=== PATIENT | female | born 1990 | race Caucasian/White ===

== ENCOUNTER 2019-06-19 17:49 | Emergency (ER) | payer MEDICAID ==
[2019-06-19] MEDS ORDERED: MAG HYDROX/AL HYDROX/SIMETH 30 ML UDC PO STA (18:34)
[2019-06-19] MEDS ORDERED: SUCRALFATE 1 GM/10 ML UDC PO STA (18:34)
[2019-06-19] MEDS ORDERED: FAMOTIDINE 20 MG TABLET PO STA (18:35)
--- NOTE | 2019-06-19 18:39 | ED Physician Documentation ---
History of Present Illness - Stated complaint Stated Complaint: RECTAL BLEED, ABD PAIN, DIZZY, CONFUSION - Chief complaint Chief Complaint: General - History obtained from History obtained from: Patient, Family - History of Present Illness Timing: How many weeks ago (several) Pain level max: 3 Pain level now: 3 - Additonal information Additional information: 29-year-old female with a history of schizoaffective disorder, recently started on Abilify. She states that this gave her sleep paralysis and made her sleep for 3 days. Her doctor stopped the medication. She states she still is not felt right since stopping that medication. She feels like the room is spinning when she turns her head quickly. Also has left upper quadrant abdominal pain, worse with eating. No diarrhea or constipation. States she had a small amount of bright red blood on the toilet paper when she wiped a few weeks ago. She is scheduled to see GI for colonoscopy within the next month. Has not had any bleeding since that time. No fevers. No vomiting. She is not , breast-feeding or trying to become . Review of Systems Ten Systems: 10 systems reviewed and negative Constitutional: denies: Fever, Chills Ears: denies: Ear pain Nose: denies: Rhinorrhea / runny nose, Congestion Cardiac: denies: Chest pain / pressure Respiratory: denies: Cough GI: denies: Vomiting, Diarrhea : denies: Dysuria, Frequency, Hesitancy Skin: denies: Rash Musculoskeletal: denies: Neck pain, Back pain Neurologic: denies: Headache PD PAST MEDICAL HISTORY - Past Medical History Past Medical History: Yes Psych: Schizophrenia - Past Surgical History Past Surgical History: Yes HEENT: Tonsil/Adenoidectomy - Present Medications Home Medications: Ambulatory Orders Medication Instructions Recorded Confirmed Ibuprofen [Motrin] 400 mg PO Q6H PRN #20 tablet 08/12/14 hydrOXYzine pamoate [Hydroxyzine 50 mg PO ONCE PRN 08/12/14 08/12/14 Pamoate] risperiDONE [Risperdal] 5 mg PO DAILY 08/12/14 08/12/14 - Allergies Allergies/Adverse Reactions: Allergies Allergy/AdvReac Type Severity Reaction Status Date / Time No Known Drug Allergies Allergy Verified 06/19/19 18:03 - Social History Does the pt smoke?: No Smoking Status: Never smoker Does the pt drink ETOH?: No Does the pt have substance abuse?: No - Immunizations Immunizations are current?: Yes PD ED PE NORMAL - Vitals Vital signs reviewed: Yes - General General: Alert and oriented X 3, No acute distress, Well developed/nourished, Other (Obese female) - HEENT HEENT: Atraumatic, PERRL, Ears normal, Moist mucous membranes, Pharynx benign - Neck Neck: Supple, no meningeal sign - Cardiac Cardiac: RRR, Strong equal pulses - Respiratory Respiratory: No respiratory distress, Clear bilaterally - Abdomen Abdomen: Soft, Non tender, Non distended - Derm Derm: Warm and dry - Extremities Extremities: No edema - Neuro Neuro: Alert and oriented X 3 - Psych Psych: Normal mood, Normal affect Results - Vitals Vitals: Vital Signs - 24 hr 06/19/19 06/19/19 17:57 19:34 Temperature 36.8 C 36.7 C Heart Rate 91 68 Respiratory 16 18 Rate Blood Pressure 121/89 H 114/67 O2 Saturation 97 97 Oxygen O2 Source Room air - Labs Labs: Laboratory Tests 06/19/19 06/19/19 06/19/19 18:21 18:45 18:45 WBC 9.4 RBC 4.53 Hgb 11.3 L Hct 37.7 MCV 83.2 MCH 24.9 L MCHC 30.0 L RDW 13.2 Plt Count 468 H MPV 9.6 Neut # (Auto) 6.0 Lymph # (Auto) 2.7 [place] # (Auto) 0.4 Eos # (Auto) 0.1 Baso # (Auto) 0.1 Absolute Nucleated RBC 0.00 Nucleated RBC % 0.0 Sodium 137 Potassium 4.3 Chloride 102 Carbon Dioxide 28 Anion Gap 7.0 BUN 11 Creatinine 0.7 Estimated GFR (MDRD) 98 Glucose 96 Calcium 8.9 Total Bilirubin 0.3 AST 18 ALT 20 Alkaline Phosphatase 48 Total Protein 7.3 Albumin 3.9 Globulin 3.4 Albumin/Globulin Ratio 1.1 Lipase 32 Urine Color YELLOW Urine Clarity CLEAR Urine pH 7.5 Ur Specific [place] 1.015 Urine Protein NEGATIVE Urine Glucose (UA) NEGATIVE Urine Ketones NEGATIVE Urine Occult Blood NEGATIVE Urine Nitrite NEGATIVE Urine Bilirubin NEGATIVE Urine Urobilinogen 0.2 (NORMAL) Ur Leukocyte Esterase NEGATIVE Ur Microscopic Review NOT INDICATED Urine Culture Comments NOT INDICATED Urine HCG, Qual NEGATIVE PD MEDICAL DECISION MAKING - ED course Complexity details: reviewed results, re-evaluated patient, considered differential, d/w patient, d/w family ED course: Patient is well-appearing, nontoxic. Afebrile. No significant lab abnorma lities. Abdomen soft, nontender nondistended on serial exam. She thinks that the GI cocktail may have helped. She also states that the spinning has lessened with meclizine. No signs of stroke. No signs of cerebellar stroke. No evidence of peritonitis. Patient counseled regarding signs and symptoms for which I believe and urgent re-evaluation would be necessary. Patient with good understanding of and agreement to plan and is comfortable going home at this time This document was made in part using voice recognition software. While efforts are made to proofread this document, sound alike and grammatical errors may occur. Departure - Departure Disposition: 01 Home, Self Care Clinical Impression: Vertigo Abdominal pain Qualifiers: Abdominal location: unspecified location Qualified Code(s): R10.9 - Unspecified abdominal pain Condition: Good Instructions: ED Abdominal Pain Unkn Cause, ED Dizziness UKO Follow-Up: Jorge Gaitan MD [Primary Care Provider] - Within 1 week Comments: Return if you worsen. Follow-up with your doctor for further care. Discharge Date/Time: 06/19/19 19:59
[2019-06-19] MEDS: MECLIZINE 12.5 MG TABLET PO STA ×2 (18:45→18:46)
[2019-06-19 18:50] LABS: BASOPHILS # (AUTO) 0.1 10^3/uL (0.0-0.1); BASOPHILS % (AUTO) 0.6 %; EOSINOPHILS # (AUTO) 0.1 10^3/uL (0.0-0.7); EOSINOPHILS % (AUTO) 1.2 %; HGB - HEMOGLOBIN 11.3 g/dL (12.0-16.0); LYMPHOCYTES # (AUTO) 2.7 10^3/uL (1.5-3.5); LYMPHOCYTES % (AUTO) 29.1 %; MEAN CORPUSCULAR HEMOGLOBIN 24.9 pg (27.0-31.0); MEAN CORPUSCULAR VOLUME 83.2 fL (81.0-99.0); MEAN PLATELET VOLUME 9.6 fL (7.9-10.8); MONOCYTES # (AUTO) 0.4 10^3/uL (0.0-1.0); MONOCYTES % (AUTO) 4.5 %; NEUTROPHILS % (AUTO) 64.2 %; PLT - PLATELET COUNT 468 10^3/uL (130-450); RED BLOOD COUNT 4.53 10^6/uL (4.20-5.40); RED CELL DISTRIBUTION WIDTH 13.2 % (12.0-15.0); WHITE BLOOD COUNT 9.4 x10^3/uL (4.8-10.8)
[2019-06-19 18:58] LABS: BILIRUBIN,URINE NEGATIVE (NEGATIVE); GLUCOSE, URINE (UA) NEGATIVE (NEGATIVE); KETONES,URINE (UA) NEGATIVE (NEGATIVE); LEUKOCYTE ESTERASE, URINE NEGATIVE (NEGATIVE); NITRITE,URINE NEGATIVE (NEGATIVE); OCCULT BLOOD,URINE NEGATIVE (NEGATIVE); PH,URINE 7.5 PH (5.0-7.5); PROTEIN,URINE NEGATIVE (NEGATIVE); UROBILINOGEN,URINE 0.2 (NORMAL) E.U./dL (NORMAL)
[2019-06-19 19:00] LABS: CLARITY,URINE CLEAR (CLEAR); HCG UR QUAL NEGATIVE
[2019-06-19 19:01] LABS: ALBUMIN 3.9 g/dL (3.2-5.5); ALBUMIN/GLOBULIN RATIO 1.1 (1.0-2.2); BILIRUBIN,TOTAL 0.3 mg/dL (0.2-1.0); CALCIUM 8.9 mg/dL (8.5-10.3); CREATININE 0.7 mg/dL (0.4-1.0); TOTAL PROTEIN 7.3 g/dL (6.7-8.2)
[2019-06-19 19:35] VITALS: BP 114/67
== END 2019-06-19 19:59 | disposition home or self-care (01) ==
LOC: ED 17:49
DX: R42 Dizziness and giddiness (principal); R10.12 Left upper quadrant pain; F25.9 Schizoaffective disorder, unspecified
CPT/HCPCS: 36415; 80053; 81003; 81025; 83690; 85025; 99283; 99284; A9270; 81001; 87086

== ENCOUNTER 2019-07-09 16:56 | Emergency (ER) | payer MEDICAID ==
[2019-07-09 17:05] VITALS: BP 144/92
--- NOTE | 2019-07-09 17:30 | ED Physician Documentation ---
History of Present Illness - Stated complaint Stated Complaint: FEVER / BILAT ARM PAIN - NEW MEDICATON - Chief complaint Chief Complaint: General - History obtained from History obtained from: Patient, Family - History of Present Illness Timing: Today Pain level max: 1 Pain level now: 1 - Additonal information Additional information: 29-year-old female presents to the emergency department stating that she started Geodon a few days ago. She states that her psychiatrist told her that if she developed a fever and her arms felt stiff that she need to be evaluated in the emergency department right away. Today she states she had a temperature of 100.5 degrees orally at home. She states that her arms feel sore. No vomiting. No coughing. Mild rhinorrhea and congestion. No abdominal pain. No diarrhea. No constipation. No urinary symptoms. Review of Systems Constitutional: reports: Fever (100.5) Nose: reports: Rhinorrhea / runny nose GI: denies: Vomiting, Diarrhea Skin: denies: Rash Musculoskeletal: denies: Neck pain, Back pain PD PAST MEDICAL HISTORY - Past Medical History Past Medical History: Yes Psych: Schizophrenia - Past Surgical History Past Surgical History: Yes HEENT: Tonsil/Adenoidectomy - Present Medications Home Medications: Ambulatory Orders Medication Instructions Recorded Confirmed Ibuprofen [Motrin] 400 mg PO Q6H PRN #20 tablet 08/12/14 hydrOXYzine pamoate [Hydroxyzine 50 mg PO ONCE PRN 08/12/14 08/12/14 Pamoate] risperiDONE [Risperdal] 5 mg PO DAILY 08/12/14 08/12/14 - Allergies Allergies/Adverse Reactions: Allergies Allergy/AdvReac Type Severity Reaction Status Date / Time No Known Drug Allergies Allergy Verified 07/09/19 17:05 - Social History Does the pt smoke?: No Smoking Status: Never smoker Does the pt drink ETOH?: No Does the pt have substance abuse?: No - Immunizations Immunizations are current?: Yes PD ED PE NORMAL - Vitals Vital signs reviewed: Yes - General General: Alert and oriented X 3, No acute distress, Well developed/nourished - HEENT HEENT: PERRL, Ears normal, Moist mucous membranes, Pharynx benign, Other (Clear rhinorrhea) - Neck Neck: Supple, no meningeal sign, No adenopathy - Cardiac Cardiac: RRR, Strong equal pulses - Respiratory Respiratory: No respiratory distress, Clear bilaterally - Abdomen Abdomen: Soft, Non tender, Non distended - Back Back: No CVA TTP, No spinal TTP - Derm Derm: Warm and dry - Extremities Extremities: No edema, Other (Normal range of motion. No rigidity.) - Neuro Neuro: Alert and oriented X 3, adjuster arbitrator 2-12 intact, No motor deficit, No sensory deficit, Normal speech Eye Opening: Spontaneous Motor: Obeys Commands Verbal: Oriented GCS Score: 15 - Psych Psych: Normal mood, Normal affect Results - Vitals Vitals: Vital Signs - 24 hr 07/09/19 17:02 Temperature 37.3 C Heart Rate 95 Respiratory 18 Rate Blood Pressure 144/92 H O2 Saturation 97 Oxygen O2 Source Room air - Labs Labs: Laboratory Tests 07/09/19 07/09/19 07/09/19 17:38 17:38 18:12 WBC 10.1 RBC 4.58 Hgb 11.4 L Hct 37.7 MCV 82.3 MCH 24.9 L MCHC 30.2 L RDW 14.1 Plt Count 504 H MPV 9.5 Neut # (Auto) 6.7 H Lymph # (Auto) 2.7 [place] # (Auto) 0.6 Eos # (Auto) 0.1 Baso # (Auto) 0.1 Absolute Nucleated RBC 0.00 Nucleated RBC % 0.0 Sodium 137 Potassium 3.9 Chloride 102 Carbon Dioxide 25 Anion Gap 10.0 BUN 6 Creatinine 0.7 Estimated GFR (MDRD) 98 Glucose 94 Calcium 8.6 Total Bilirubin 0.5 AST 13 ALT 15 Alkaline Phosphatase 51 Total Creatine Kinase 59 Total Protein 7.4 Albumin 3.9 Globulin 3.5 Albumin/Globulin Ratio 1.1 Lipase 26 Urine Color YELLOW Urine Clarity HAZY Urine pH 5.5 Ur Specific [place] >=1.030 H Urine Protein NEGATIVE Urine Glucose (UA) NEGATIVE Urine Ketones NEGATIVE Urine Occult Blood NEGATIVE Urine Nitrite NEGATIVE Urine Bilirubin NEGATIVE Urine Urobilinogen 0.2 (NORMAL) Ur Leukocyte Esterase SMALL H Urine RBC 0-5 Urine WBC 11-25 H Ur Squamous Epith Cells MANY Squamous H Urine Bacteria Rare Ur Microscopic Review INDICATED Urine Culture Comments NOT INDICATED Urine HCG, Qual NEGATIVE Influenza A (Rapid) Influenza B (Rapid) 07/09/19 18:12 WBC RBC Hgb Hct MCV MCH MCHC RDW Plt Count MPV Neut # (Auto) Lymph # (Auto) [place] # (Auto) Eos # (Auto) Baso # (Auto) Absolute Nucleated RBC Nucleated RBC % Sodium Potassium Chloride Carbon Dioxide Anion Gap BUN Creatinine Estimated GFR (MDRD) Glucose Calcium Total Bilirubin AST ALT Alkaline Phosphatase Total Creatine Kinase Total Protein Albumin Globulin Albumin/Globulin Ratio Lipase Urine Color Urine Clarity Urine pH Ur Specific [place] Urine Protein Urine Glucose (UA) Urine Ketones Urine Occult Blood Urine Nitrite Urine Bilirubin Urine Urobilinogen Ur Leukocyte Esterase Urine RBC Urine WBC Ur Squamous Epith Cells Urine Bacteria Ur Microscopic Review Urine Culture Comments Urine HCG, Qual Influenza A (Rapid) Negative Influenza B (Rapid) Negative PD MEDICAL DECISION MAKING - ED course Complexity details: reviewed results, re-evaluated patient, considered differential, d/w patient ED course: 29-year-old female with what appears to be a viral syndrome. She is well- appearing, nontoxic. Afebrile here. No evidence of neuroleptic malignant syndrome. We will have her follow-up with her psychiatrist in the morning to discuss if he wants her to continue the Geodon at home. Patient counseled regarding signs and symptoms for which I believe and urgent re-evaluation would be necessary. Patient with good understanding of and agreement to plan and is comfortable going home at this time This document was made in part using voice recognition software. While efforts are made to proofread this document, sound alike and grammatical errors may occur. Departure - Departure Disposition: 01 Home, Self Care Clinical Impression: Viral syndrome Condition: Good Instructions: ED Viral Syndrome Follow-Up: Jorge Gaitan MD [Primary Care Provider] - Within 1 week Comments: Contact your doctor tomorrow to see if he wants you to continue your Geodon. You do not appear to have neuroleptic malignant syndrome tonight. Your laboratory testing is normal. Return if you worsen. Discharge Date/Time: 07/09/19 19:50
[2019-07-09 17:43] LABS: BASOPHILS # (AUTO) 0.1 10^3/uL (0.0-0.1); BASOPHILS % (AUTO) 0.6 %; EOSINOPHILS # (AUTO) 0.1 10^3/uL (0.0-0.7); EOSINOPHILS % (AUTO) 1.1 %; HGB - HEMOGLOBIN 11.4 g/dL (12.0-16.0); LYMPHOCYTES # (AUTO) 2.7 10^3/uL (1.5-3.5); LYMPHOCYTES % (AUTO) 26.3 %; MEAN CORPUSCULAR HEMOGLOBIN 24.9 pg (27.0-31.0); MEAN CORPUSCULAR HGB CONC 30.2 g/dL (32.0-36.0); MEAN CORPUSCULAR VOLUME 82.3 fL (81.0-99.0); MEAN PLATELET VOLUME 9.5 fL (7.9-10.8); MONOCYTES # (AUTO) 0.6 10^3/uL (0.0-1.0); MONOCYTES % (AUTO) 5.7 %; NEUTROPHILS # (AUTO) 6.7 10^3/uL (1.5-6.6); NEUTROPHILS % (AUTO) 65.9 %; PLT - PLATELET COUNT 504 10^3/uL (130-450); RED BLOOD COUNT 4.58 10^6/uL (4.20-5.40); RED CELL DISTRIBUTION WIDTH 14.1 % (12.0-15.0); WHITE BLOOD COUNT 10.1 x10^3/uL (4.8-10.8)
[2019-07-09 17:55] LABS: ALBUMIN 3.9 g/dL (3.2-5.5); ALBUMIN/GLOBULIN RATIO 1.1 (1.0-2.2); BILIRUBIN,TOTAL 0.5 mg/dL (0.2-1.0); CALCIUM 8.6 mg/dL (8.5-10.3); CREATININE 0.7 mg/dL (0.4-1.0); TOTAL PROTEIN 7.4 g/dL (6.7-8.2)
[2019-07-09 18:25] LABS: BILIRUBIN,URINE NEGATIVE (NEGATIVE); GLUCOSE, URINE (UA) NEGATIVE (NEGATIVE); KETONES,URINE (UA) NEGATIVE (NEGATIVE); LEUKOCYTE ESTERASE, URINE SMALL (NEGATIVE); NITRITE,URINE NEGATIVE (NEGATIVE); OCCULT BLOOD,URINE NEGATIVE (NEGATIVE); PH,URINE 5.5 PH (5.0-7.5); PROTEIN,URINE NEGATIVE (NEGATIVE); UROBILINOGEN,URINE 0.2 (NORMAL) E.U./dL (NORMAL)
[2019-07-09 18:31] LABS: CLARITY,URINE HAZY (CLEAR); HCG UR QUAL NEGATIVE
[2019-07-09 18:41] LABS: BACTERIA,URINE Rare /HPF (None Seen); RBC,URINE 0-5 /HPF (0-5); SQUAMOUS EPITHELIAL CELL,UR MANY Squamous (<= Few)
== END 2019-07-09 19:50 | disposition home or self-care (01) ==
LOC: ED 16:56
DX: B34.9 Viral infection, unspecified (principal)
CPT/HCPCS: 36415; 80053; 81001; 81003; 81025; 82550; 83690; 85025; 87086; 87275; 87276; 99282; 99283

== ENCOUNTER 2021-07-21 12:56 | Outpatient (CLI) | payer MEDICAID ==
--- NOTE | 2021-07-21 16:02 | Ultrasound Report ---
PROCEDURE: Abdomen Complete INDICATIONS: RIGHT UPPER QUAD ABD PAIN TECHNIQUE: Real-time scanning was performed of the abdominal and retroperitoneal organs, with image documentatio n. COMPARISON: None. FINDINGS: Liver: Within normal limits in size. Increased in echogenicity.. Gallbladder: Gallbladder is nondistended. Mobile and nonmobile gallstones are seen. A nonmobile stone at the gallbladder neck measuring 2.6 cm. No gallbladder wall thickening. No pericholecystic fluid. Negative sonographic Ochoa sign. Biliary ducts: Intrahepatic bile ducts are non-dilated. Extrahepatic bile duct caliber measures 3 m m. Normal is 6-7 mm or less in diameter, or 10 mm or less post-cholecystectomy. Pancreas: Not well seen. Spleen: Measures 15 x 14.5 x 4.1 cm, volume of 468 cc. Splenomegaly. Kidneys: Kidneys are normal in size and echotexture. Right kidney measures 13.1 cm long; left kidne y measures 12.7 cm long. No hydronephrosis or nephrolithiasis. No solid masses. Aorta: Visualized aorta is normal in caliber at less than 3 cm. Iliacs: Proximal common iliac arteries are normal in caliber at less than 2.5 cm. IVC: Intrahepatic inferior vena cava is patent. Miscellaneous: No free abdominal fluid. IMPRESSION: 1. No acute cholecystitis is demonstrated. However, there is a large stone at the gallbladder neck me asuring 2.6 cm. Several additional gallstones. 2. Splenomegaly. 3. No hydronephrosis. 4. Increased echogenicity of the hepatic parenchyma. This is most commonly seen in hepatic steatosis. Other forms of hepatocellular disease could have a similar appearance. Reviewed by: Trino Martinez MD on 07/21/2021 4:01 PM PST Approved by: Trino Martinez MD on 07/21/2021 4:01 PM PST Station ID: [id number]
== END 2021-07-21 12:57 | disposition home or self-care (01) ==
LOC: DI 12:56
PROVIDERS: ATTEND Family Medicine
DX: R10.11 Right upper quadrant pain (principal); K80.20 Calculus of gallbladder without cholecystitis without obstruction; R16.1 Splenomegaly, not elsewhere classified; R93.2 Abnormal findings on diagnostic imaging of liver and biliary tract

== ENCOUNTER 2021-10-16 16:30 | Emergency (ER) | payer MEDICAID ==
[2021-10-16 16:57] LABS: BASOPHILS # (AUTO) 0.1 10^3/uL (0.0-0.1); BASOPHILS % (AUTO) 0.5 %; EOSINOPHILS # (AUTO) 0.2 10^3/uL (0.0-0.7); EOSINOPHILS % (AUTO) 1.7 %; HGB - HEMOGLOBIN 11.8 g/dL (12.0-16.0); MEAN CORPUSCULAR HEMOGLOBIN 25.1 pg (27.0-31.0); MEAN CORPUSCULAR HGB CONC 31.1 g/dL (32.0-36.0); MEAN CORPUSCULAR VOLUME 80.7 fL (81.0-99.0); MEAN PLATELET VOLUME 8.8 fL (7.9-10.8); MONOCYTES # (AUTO) 0.6 10^3/uL (0.0-1.0); MONOCYTES % (AUTO) 4.7 %; NEUTROPHILS # (AUTO) 8.2 10^3/uL (1.5-6.6); NEUTROPHILS % (AUTO) 67.5 %; PLT - PLATELET COUNT 473 10^3/uL (130-450); RED BLOOD COUNT 4.71 10^6/uL (4.20-5.40); RED CELL DISTRIBUTION WIDTH 14.6 % (12.0-15.0); WHITE BLOOD COUNT 12.1 x10^3/uL (4.8-10.8)
[2021-10-16 17:10] LABS: BILIRUBIN,TOTAL 0.3 mg/dL (0.2-1.0); CALCIUM 9.1 mg/dL (8.5-10.3); CREATININE 0.6 mg/dL (0.4-1.0); POTASSIUM 4.1 mmol/L (3.5-5.0)
--- NOTE | 2021-10-16 18:12 | ED Physician Documentation ---
PD HPI ABD PAIN - Stated complaint Stated Complaint: FEMALE - Chief complaint Chief Complaint: Abd Pain - History obtained from History obtained from: Patient - History of Present Illness Timing - onset: How many days ago (1-2 days of some dark coloring to stool. Had been told to look for that (among other symptoms) due to gallbladder problems, with CCY planned for November 07. Has intermittent pains in abd, but not consistent.) Timing - duration: Days Timing - details: Gradual onset, Intermittant Quality: Cramping, Aching, Pain Location: RUQ, Epigastric Radiation: No: Right flank Worsened by: Eating Associated symptoms: Nausea. No: Fever, Vomiting, Diarrhea, Melena (has noted dark stool since yesterday, soft but still formed.) Similar symptoms before: Has not had sx before Recently seen: Clinic (has seen Surgery in [place] about GB stones and pains, with planned CCY November 07.), Emergency Dept Review of Systems Constitutional: denies: Fever, Chills Nose: denies: Rhinorrhea / runny nose, Congestion Throat: denies: Sore throat Respiratory: denies: Cough GI: reports: Abdominal Pain (for few weeks intermittently), Nausea. denies: Vomiting, Constipation, Diarrhea : denies: Dysuria, Frequency Musculoskeletal: denies: Neck pain, Back pain Neurologic: denies: Generalized weakness, Near syncope PD PAST MEDICAL HISTORY - Past Medical History Cardiovascular: None Respiratory: None Endocrine/Autoimmune: None GI: Other (gall stones with GB colic often, with plan for CCY November 07. ) Psych: Schizophrenia - Past Surgical History Past Surgical History: Yes HEENT: Tonsil/Adenoidectomy - Present Medications Home Medications: Ambulatory Orders Medication Instructions Recorded Confirmed Ibuprofen [Motrin] 400 mg PO Q6H PRN #20 tablet 08/12/14 hydrOXYzine pamoate [Hydroxyzine 50 mg PO ONCE PRN 08/12/14 08/12/14 Pamoate] risperiDONE [Risperdal] 5 mg PO DAILY 08/12/14 08/12/14 Acetaminophen [Acetaminophen Extra 500 mg PO QID PRN #50 tablet 10/16/21 Strength] Dicyclomine [Bentyl] 10 mg PO TID PRN #20 cap 10/16/21 Famotidine [Pepcid] 20 mg PO DAILY #20 tablet 10/16/21 - Allergies Allergies/Adverse Reactions: Allergies Allergy/AdvReac Type Severity Reaction Status Date / Time No Known Drug Allergies Allergy Verified 10/16/21 16:43 - Living Situation Living Situation: reports: With family Living Arrangement: reports: At home - Social History Does the pt smoke?: No Smoking Status: Never smoker Does the pt drink ETOH?: No Does the pt have substance abuse?: No - Immunizations Immunizations are current?: Yes PD ED PE NORMAL - Vitals Vital signs reviewed: Yes - General General: Alert and oriented X 3, No acute distress, Well developed/nourished - Neck Neck: Supple, no meningeal sign, No adenopathy - Cardiac Cardiac: RRR, No murmur - Respiratory Respiratory: Clear bilaterally - Abdomen Abdomen: Normal bowel sounds, Soft, Non distended, No organomegaly, Other (mild tenderness epigastric and RUQ without guarding, percussion nor rebound tenderness. ) - Rectal Rectal: Deferred (she defecated small amount of stool, so able to get guaiac test from that. ) - Back Back: No CVA TTP - Derm Derm: Normal color, Warm and dry - Extremities Extremities: No tenderness to palpate, Normal ROM s pain, No edema, No calf tenderness / cord Results - Vitals Vitals: Vital Signs - 24 hr 10/16/21 10/16/21 16:37 18:49 Temperature 37.0 C Heart Rate 94 88 Respiratory 16 16 Rate Blood Pressure 150/107 H 124/71 O2 Saturation 96 95 Oxygen O2 Source Room air - Labs Labs: Microbiology 10/16/21 18:41 Occult Blood - Final Stool - Loose Consistency Laboratory Tests 10/16/21 10/16/21 10/16/21 16:53 16:53 18:09 WBC 12.1 H RBC 4.71 Hgb 11.8 L Hct 38.0 MCV 80.7 L MCH 25.1 L MCHC 31.1 L RDW 14.6 Plt Count 473 H MPV 8.8 Neut # (Auto) 8.2 H Lymph # (Auto) 3.0 [place] # (Auto) 0.6 Eos # (Auto) 0.2 Baso # (Auto) 0.1 Absolute Nucleated RBC 0.00 Nucleated RBC % 0.0 Sodium 136 Potassium 4.1 Chloride 101 Carbon Dioxide 26 Anion Gap 9.0 BUN 9 Creatinine 0.6 Estimated GFR (MDRD) 115 Glucose 102 H Calcium 9.1 Total Bilirubin 0.3 AST 18 ALT 19 Alkaline Phosphatase 56 Total Protein 8.0 Albumin 4.0 Globulin 4.0 Albumin/Globulin Ratio 1.0 Lipase 30 Urine Color YELLOW Urine Clarity HAZY Urine pH 5.5 Ur Specific [place] 1.020 Urine Protein NEGATIVE Urine Glucose (UA) NEGATIVE Urine Ketones NEGATIVE Urine Occult Blood LARGE H Urine Nitrite NEGATIVE Urine Bilirubin NEGATIVE Urine Urobilinogen 0.2 (NORMAL) Ur Leukocyte Esterase NEGATIVE Urine RBC TNTC H Urine WBC 0-3 Ur Squamous Epith Cells FEW Squamous Urine Bacteria Few Ur Microscopic Review INDICATED Urine Culture Comments NOT INDICATED Urine HCG, Qual NEGATIVE PD MEDICAL DECISION MAKING - ED course Complexity details: reviewed results, considered differential (some upper abd tender but not notable/peritoneal. Stool is negative for blood. Offered meds to help with GB symptoms. ), d/w patient Departure - Departure Disposition: Home, Self Care Clinical Impression: Dark stools, Right upper quadrant abdominal pain with calculus of gallbladder present on ultrasound Condition: Stable Record reviewed to determine appropriate education?: Yes Instructions: ED Gallstone W Biliary Colic Follow-Up: Jorge Gaitan MD [Primary Care Provider] - Prescriptions: Acetaminophen [Acetaminophen Extra Strength] 500 mg PO QID PRN #50 tablet PRN Reason: Pain Dicyclomine [Bentyl] 10 mg PO TID PRN #20 cap PRN Reason: Abdominal Pain Famotidine [Pepcid] 20 mg PO DAILY #20 tablet Comments: Your stool test negative for blood in it. It is dark for other reason that could be food related or sometimes medication or even increased bile from your gallbladder. But there is no signs of blood in it. Your liver and pancreas blood test numbers are good so no signs of sludging or blockage of the common bile duct. For your gallbladder pains, you can certainly do acetaminophen 3-4 times daily for pain. You can also add dicyclomine antispasmodic 3 times daily if needed for spasms or pain. I could also suggest famotidine acid reducing medicine daily for the next few weeks. Recheck or return if increasing pain, vomiting, fever, other concerns. Otherwise good luck with your gallbladder surgery on the . I sent your prescriptions to [facility] in [place]. Discharge Date/Time: 10/16/21 19:09
[2021-10-16 18:29] LABS: BILIRUBIN,URINE NEGATIVE (NEGATIVE); GLUCOSE, URINE (UA) NEGATIVE (NEGATIVE); KETONES,URINE (UA) NEGATIVE (NEGATIVE); LEUKOCYTE ESTERASE, URINE NEGATIVE (NEGATIVE); NITRITE,URINE NEGATIVE (NEGATIVE); OCCULT BLOOD,URINE LARGE (NEGATIVE); PH,URINE 5.5 PH (5.0-7.5); PROTEIN,URINE NEGATIVE (NEGATIVE); UROBILINOGEN,URINE 0.2 (NORMAL) E.U./dL (NORMAL)
[2021-10-16 18:31] LABS: CLARITY,URINE HAZY (CLEAR); HCG UR QUAL NEGATIVE
[2021-10-16 18:41] LABS: BACTERIA,URINE Few /HPF (None Seen); RBC,URINE TNTC /HPF (0-5); SQUAMOUS EPITHELIAL CELL,UR FEW Squamous (<= Few); WBC,URINE 0-3 /HPF (0-5)
[2021-10-16] MEDS ORDERED: DICYCLOMINE 10 MG CAPSULE PO STA (18:46)
[2021-10-16] MEDS ORDERED: ACETAMINOPHEN 325 MG TABLET PO STA (18:46)
[2021-10-16] MEDS ORDERED: FAMOTIDINE 20 MG TABLET PO STA (18:47)
[2021-10-16 18:50] VITALS: BP 124/71
== END 2021-10-16 19:09 | disposition home or self-care (01) ==
LOC: ED 16:30
DX: K80.20 Calculus of gallbladder without cholecystitis without obstruction (principal); K92.1 Melena
CPT/HCPCS: 36415; 80053; 81001; 81025; 82272; 83690; 85025; 99282; 99283; A9270; 81003; 87086

== ENCOUNTER 2023-11-01 15:40 | Emergency (ER) | payer MEDICAID ==
[2023-11-01 16:57] LABS: B. PARAPERTUSSIS- RESP PCR PAN NOT DETECTED; B. PERTUSSIS- RESP PCR PANEL NOT DETECTED; C. PNEUMONIAE- RESP PCR PANEL NOT DETECTED; CORONAVIRUS 229E-RESP PCR NOT DETECTED; CORONAVIRUS HKU1-RESP PCR NOT DETECTED; CORONAVIRUS NL63-RESP PCR NOT DETECTED; CORONAVIRUS OC43-RESP PCR NOT DETECTED; HUMAN METAPNEUMOVIRUS NOT DETECTED; INFLUENZA A- RESP PCR PANEL NOT DETECTED; INFLUENZA B - RESP PCR PANEL NOT DETECTED; M. PNEUMONIAE- RESP PCR PANEL NOT DETECTED; PARAINFLUENZA VIRUS 1 NOT DETECTED; PARAINFLUENZA VIRUS 2 NOT DETECTED; PARAINFLUENZA VIRUS 3 NOT DETECTED; PARAINFLUENZA VIRUS 4 NOT DETECTED; RHINOVIRUS/ENTEROVIRUS NOT DETECTED; RSV- RESP PCR PANEL NOT DETECTED; SARS-CoV-2 -RESP PCR PANEL NOT DETECTED
--- NOTE | 2023-11-01 17:23 | ED Physician Documentation ---
PD HPI URI - Stated complaint Stated Complaint: SOA - Chief complaint Chief Complaint: Resp - Additional information Additional information: 33-year-old female with no pertinent past medical history presents emergency department for wheezing cough and intermittent episodes of what patient describes as shortness of breath. Patient states that she has already noticed cough with congestion and sometimes she wakes up feeling like she is gasping for air. Only happens when she is lying down sleeping flat she says that she does possibly have undiagnosed sleep apnea as she is not currently taking test for. No fevers or chills that she is aware but she has been feeling hot and cold at home. PD PAST MEDICAL HISTORY - Past Medical History Past Medical History: Yes Cardiovascular: None Respiratory: None Endocrine/Autoimmune: None GI: Other Psych: Schizophrenia - Past Surgical History Past Surgical History: Yes HEENT: Tonsil/Adenoidectomy - Present Medications Home Medications: Ambulatory Orders Medication Instructions Recorded Confirmed Ibuprofen [Motrin] 400 mg PO Q6H PRN #20 tablet 08/12/14 hydrOXYzine pamoate [Hydroxyzine 50 mg PO ONCE PRN 08/12/14 08/12/14 Pamoate] risperiDONE [Risperdal] 5 mg PO DAILY 08/12/14 08/12/14 Acetaminophen [Acetaminophen Extra 500 mg PO QID PRN #50 tablet 10/16/21 Strength] Dicyclomine [Bentyl] 10 mg PO TID PRN #20 cap 10/16/21 Famotidine [Pepcid] 20 mg PO DAILY #20 tablet 10/16/21 - Allergies Allergies/Adverse Reactions: Allergies Allergy/AdvReac Type Severity Reaction Status Date / Time No Known Drug Allergies Allergy Verified 11/01/23 15:53 - Social History Does the pt smoke?: No Smoking Status: Never smoker Does the pt drink ETOH?: No Does the pt have substance abuse?: No - Immunizations Immunizations are current?: Yes PD ED PE NORMAL - Vitals Vital signs reviewed: Yes - General General: Alert and oriented X 3, No acute distress, Well developed/nourished - HEENT HEENT: Atraumatic - Neck Neck: Supple, no meningeal sign, No JVD - Cardiac Cardiac: RRR - Respiratory Respiratory: No respiratory distress, Clear bilaterally Results - Vitals Vitals: Oxygen O2 Source Room air - Labs Labs: Laboratory Tests 11/01/23 15:55 Nasal Adenovirus (PCR) NOT DETECTED Nasal B. parapertussis DNA (PCR) NOT DETECTED Nasal Coronavir 229E PCR NOT DETECTED Nasal Coronavir HKU1 PCR NOT DETECTED Nasal Coronavir NL63 PCR NOT DETECTED Nasal Coronavir OC43 PCR NOT DETECTED Nasal Enterovir/Rhinovir PCR NOT DETECTED Nasal Influenza B PCR NOT DETECTED Nasal Influenza A PCR NOT DETECTED Nasal Parainfluen 1 PCR NOT DETECTED Nasal Parainfluen 2 PCR NOT DETECTED Nasal Parainfluen 3 PCR NOT DETECTED Nasal Parainfluen 4 PCR NOT DETECTED Nasal RSV (PCR) NOT DETECTED Nasal B.pertussis DNA PCR NOT DETECTED Nasal C.pneumoniae (PCR) NOT DETECTED Harley Human Metapneumo PCR NOT DETECTED Nasal M.pneumoniae (PCR) NOT DETECTED Nasal SARS-CoV-2 (PCR) NOT DETECTED PD Medical Decision Making - ED course ED course: 33-year-old female presents emergency department for intermittent episode of shortness of breath that has fully resolved. Respiratory panel came back negative although patient does appear to have an upper respiratory infection. Vitals are very stable she is not hypoxic lung sounds are clear throughout given that the symptoms just started yesterday do not believe a chest x-ray is warranted. Patient was offered Tylenol ibuprofen here in the emergency department for her flulike symptoms but she kindly declined this times that she had some at home. Patient is given ER return precautions told to follow-up with primary care provider outpatient and to pursue the sleep study that has been prescribed for her for possible sleep apnea. No further workup indicated at this time. All questions answered safe for discharge. Departure - Departure Disposition: 01 Home, Self Care Clinical Impression: Upper respiratory infection Instructions: ED Viral Syndrome Comments: Thank you for trusting us with your care. I believe that you are experiencing symptoms of an upper respiratory infection. Going home make sure that you drink plenty of fluids get plenty of rest eat a healthy well-balanced diet you can take Tylenol ibuprofen for any pain or discomfort you are experiencing with inhalation. Please come back to the ER if you are having fevers lasting longer than 5 days, or any other concerning emergent symptoms. Wishing a speedy recovery. Forms: PCP List Discharge Date/Time: 11/01/23 17:33
[2023-11-01 17:37] VITALS: BP 140/72; O2SAT 98
== END 2023-11-01 17:33 | disposition home or self-care (01) ==
LOC: ED 15:40
DX: J06.9 Acute upper respiratory infection, unspecified (principal); Z79.899 Other long term (current) drug therapy
CPT/HCPCS: 87633; 99283

== ENCOUNTER 2023-12-09 19:58 | Emergency (ER) | payer MEDICAID ==
[2023-12-09 20:23] VITALS: BP 137/91; O2SAT 97
[2023-12-09 20:37] LABS: BASOPHILS # (AUTO) 0.1 10^3/uL (0.0-0.1); BASOPHILS % (AUTO) 0.4 %; EOSINOPHILS # (AUTO) 0.1 10^3/uL (0.0-0.7); EOSINOPHILS % (AUTO) 0.7 %; HCT - HEMATOCRIT 38.4 % (37.0-47.0); HGB - HEMOGLOBIN 11.6 g/dL (12.0-16.0); LYMPHOCYTES # (AUTO) 3.7 10^3/uL (1.5-3.5); LYMPHOCYTES % (AUTO) 26.7 %; MEAN CORPUSCULAR HEMOGLOBIN 25.4 pg (27.0-31.0); MEAN CORPUSCULAR HGB CONC 30.2 g/dL (32.0-36.0); MEAN PLATELET VOLUME 9.1 fL (7.9-10.8); MONOCYTES # (AUTO) 0.6 10^3/uL (0.0-1.0); NEUTROPHILS # (AUTO) 9.4 10^3/uL (1.5-6.6); NEUTROPHILS % (AUTO) 67.8 %; PLT - PLATELET COUNT 456 10^3/uL (130-450); RED BLOOD COUNT 4.57 10^6/uL (4.20-5.40); RED CELL DISTRIBUTION WIDTH 13.7 % (12.0-15.0); WHITE BLOOD COUNT 13.8 x10^3/uL (4.8-10.8)
[2023-12-09 20:49] LABS: ALBUMIN 4.1 g/dL (3.2-5.5); ALBUMIN/GLOBULIN RATIO 1.3 (1.0-2.2); BILIRUBIN,TOTAL 0.4 mg/dL (0.2-1.0); CALCIUM 9.4 mg/dL (8.5-10.3); CREATININE 0.8 mg/dL (0.6-1.3); POTASSIUM 3.8 mmol/L (3.5-4.5); TOTAL PROTEIN 7.3 g/dL (6.4-8.9)
[2023-12-09 20:54] LABS: TROPONIN I HIGH SENSITIVITY 2.5 ng/L (2.3-14.8)
--- NOTE | 2023-12-09 21:52 | XRAY Report ---
PROCEDURE: Chest 1V INDICATIONS: Chest pain TECHNIQUE: One view of the chest was acquired. COMPARISON: 08/12/2014. FINDINGS: Surgical changes and devices: None. Lungs and pleura: Elevation of right hemidiaphragm is seen. No pleural effusions or pneumothorax. L ungs are clear. Mediastinum: Mediastinal contours appear normal. Heart size is normal. Bones and chest wall: No suspicious bony lesions. Overlying soft tissues appear unremarkable. IMPRESSION: No acute cardiopulmonary process. Chronic elevation of right hemidiaphragm. Reviewed by: Serafin Gross MD on 12/09/2023 9:51 PM PDT Approved by: Serafin Gross MD on 12/09/2023 9:51 PM PDT Station ID: [id number]
--- NOTE | 2023-12-10 00:34 | ED Physician Documentation ---
PD HPI CHEST PAIN - Stated complaint Stated Complaint: CHEST PX - Chief complaint Chief Complaint: Cardiac - History obtained from History obtained from: Patient - Additional information Additional information: Patient is a 33-year-old with schizoaffective presenting for evaluation of chest pain for the past 3 days. Reports having episodes lasting approximately an hour. Feels like a warm pressure sensation in the middle of her chest. Nothing makes it better or worse. Denies prior cardiac history. No history of hypertension, diabetes, hyperlipidemia, early CAD in family members. No history of PE or DVT. No leg swelling or pain, recent travel or immobilization. No recent illness. Review of Systems Constitutional: denies: Fever Cardiac: reports: Chest pain / pressure Respiratory: denies: Dyspnea GI: denies: Abdominal Pain Musculoskeletal: denies: Back pain PD PAST MEDICAL HISTORY - Past Medical History Past Medical History: Yes Cardiovascular: None Respiratory: None Neuro: None Endocrine/Autoimmune: None GI: Other [place]: None : None HEENT: None Psych: Schizophrenia Musculoskeletal: None Derm: None - Past Surgical History Past Surgical History: Yes General: Cholecystectomy HEENT: Tonsil/Adenoidectomy - Present Medications Home Medications: Ambulatory Orders Medication Instructions Recorded Confirmed Ibuprofen [Motrin] 400 mg PO Q6H PRN #20 tablet 08/12/14 hydrOXYzine pamoate [Hydroxyzine 50 mg PO ONCE PRN 08/12/14 08/12/14 Pamoate] risperiDONE [Risperdal] 5 mg PO DAILY 08/12/14 08/12/14 Acetaminophen [Acetaminophen Extra 500 mg PO QID PRN #50 tablet 10/16/21 Strength] Dicyclomine [Bentyl] 10 mg PO TID PRN #20 cap 10/16/21 Famotidine [Pepcid] 20 mg PO DAILY #20 tablet 10/16/21 - Allergies Allergies/Adverse Reactions: Allergies Allergy/AdvReac Type Severity Reaction Status Date / Time No Known Drug Allergies Allergy Verified 12/09/23 20:17 - Social History Does the pt smoke?: No Smoking Status: Never smoker Does the pt drink ETOH?: No Does the pt have substance abuse?: No - Immunizations Immunizations are current?: Yes PD ED PE NORMAL - General General: Alert and oriented X 3, No acute distress, Well developed/nourished - HEENT HEENT: Atraumatic - Neck Neck: Supple, no meningeal sign - Cardiac Cardiac: RRR, Strong equal pulses, Other (Midsternal chest wall tenderness to palpation with no crepitus or rash) - Respiratory Respiratory: No respiratory distress, Clear bilaterally - Abdomen Abdomen: Normal bowel sounds, Soft, Non tender, Non distended - Derm Derm: Warm and dry - Extremities Extremities: No edema, No calf tenderness / cord - Neuro Neuro: Alert and oriented X 3, Normal speech Results - Vitals Vitals: Vital Signs - 24 hr 12/09/23 20:10 Temperature 37.2 C Heart Rate 69 Respiratory 24 Rate Blood Pressure 137/91 H O2 Saturation 97 Oxygen O2 Source Room air - EKG (time done) 2019 EKG releavant findings:: EKG personally interpreted by author of this note. Relevant findings are: Rate 75, normal sinus rhythm, no STEMI, QTc 448 - Labs Labs: Laboratory Tests 12/09/23 12/09/23 12/10/23 20:29 20:29 00:15 WBC 13.8 H RBC 4.57 Hgb 11.6 L Hct 38.4 MCV 84.0 MCH 25.4 L MCHC 30.2 L RDW 13.7 Plt Count 456 H MPV 9.1 Neut # (Auto) 9.4 H Lymph # (Auto) 3.7 H Brooke # (Auto) 0.6 Eos # (Auto) 0.1 Baso # (Auto) 0.1 Absolute Nucleated RBC 0.00 Nucleated RBC % 0.0 Sodium 137 Potassium 3.8 Chloride 104 Carbon Dioxide 27 Anion Gap 6.0 BUN 10 Creatinine 0.8 Estimated GFR (MDRD) 82 L Glucose 100 Calcium 9.4 Total Bilirubin 0.4 AST 18 ALT 16 Alkaline Phosphatase 63 Troponin I High Sens 2.5 2.3 Total Protein 7.3 Albumin 4.1 Globulin 3.2 Albumin/Globulin Ratio 1.3 Lipase 25 PD Medical Decision Making - ED course Complexity details: reviewed results, re-evaluated patient, d/w patient ED course: Patient is a 33-year-old with intermittent episodes of chest pain for the last 3 days. No risk factors for ACS. Pain is a typical and does not suggest unstable angina. CBC, chemistry, troponin were obtained and reviewed. EKG is normal sinus rhythm. Troponins x 2 are negative. Chest x-ray which I reviewed is negative for pneumonia or effusion. Patient is low risk for ACS based on the heart score. PERC negative. Dissection does not seem likely based on history and risk factors. Patient counseled on importance of close follow-up with PCP and advised on concerning symptoms to return for. Departure - Departure Disposition: 01 Home, Self Care Clinical Impression: Chest pain Condition: Stable Instructions: ED Chest Pain Atypical Unkn Cause Comments: You were evaluated for chest pain. At this time the exact cause for the chest pain is unclear but we do not see signs of a heart attack or an irregular rhythm. Your chest x-ray does not show signs of infection. I would recommend close follow-up with your primary care provider as you may need further testing to determine the cause of your symptoms. Please return to the ER if you develop any worsening. Forms: PCP List Discharge Date/Time: 12/10/23 01:00
== END 2023-12-10 01:00 | disposition home or self-care (01) ==
LOC: ED 19:58
DX: R07.89 Other chest pain (principal)
CPT/HCPCS: 36415; 80053; 83690; 84484; 85025; 93005; 99284